=== PATIENT | male | born 1940 | race Caucasian/White ===

== ENCOUNTER 2019-04-10 05:27 | Day surgery (SDC) | payer OTHER | END 2019-04-10 10:20 | disposition home or self-care (01) | LOC: AMB-ENDOS 05:27 | DX: D12.3 Benign neoplasm of transverse colon (principal); K64.1 Second degree hemorrhoids ==

== ENCOUNTER 2019-10-16 05:21 | Day surgery (SDC) | payer OTHER | END 2019-10-16 10:25 | disposition home or self-care (01) | LOC: AMB-ENDOS 05:21 | DX: D12.3 Benign neoplasm of transverse colon (principal); K64.1 Second degree hemorrhoids ==

== ENCOUNTER 2019-10-26 15:36 | Inpatient (IN) | payer OTHER ==
[~2019-10-26] VITALS: Ht 165.1 cm; Wt 70.3 kg
[2019-12-01] MEDS ORDERED: FORTAMET1000 MG PO (10:10)
[2019-12-01] MEDS ORDERED: VERAPAM (10:11)
[2019-12-01] MEDS ORDERED: LOSARTAN-HCTZ1 EAC1 PO (10:11)
[2019-12-01] MEDS ORDERED: SYNTHROID50 MCG PO (10:12)
[2019-12-01] MEDS ORDERED: KAPVAY0.1 MG (10:12)
[2019-12-01] MEDS ORDERED: ZOCOR20 MG PO (10:12)
[2019-12-01] MEDS ORDERED: MEMANTINE HCL5 MG PO (10:13)
[2019-12-08] MEDS ORDERED: VERELAN120 MG PO (08:12)
== END 2019-12-11 16:50 | disposition home or self-care (01) | DRG 330 ==
LOC: O/R 12-08 05:40 → SURH 12-08 05:40 → SURG 12-08 09:00 → SURH 12-08 11:29 → SURG 12-08 19:00 → SURH 12-11 16:50
PROVIDERS: ADMIT Colon & Rectal Surgery
PROC: 07BC4ZX Excision of Pelvis Lymphatic, Percutaneous Endoscopic Approach, Diagnostic (ICD-10-PCS; 2019-12-08)
PROC: 0DBU4ZZ Excision of Omentum, Percutaneous Endoscopic Approach (ICD-10-PCS; 2019-12-08)
PROC: 0DTN4ZZ Resection of Sigmoid Colon, Percutaneous Endoscopic Approach (ICD-10-PCS; principal; 2019-12-08 19:00)
DX: C18.7 Malignant neoplasm of sigmoid colon (principal); K92.1 Melena; Z86.010 Personal history of colon polyps; I10 Essential (primary) hypertension; R50.82 Postprocedural fever

== ENCOUNTER 2020-06-07 14:18 | Emergency (ER) | payer OTHER ==
[~2020-06-07] VITALS: Ht 165.1 cm; Wt 70.3 kg
[~2020-06-07 14:18] MED LIST: FORTAMET1000 MG PO; KAPVAY0.1 MG; LOSARTAN-HCTZ1 EAC1 PO; MEMANTINE HCL5 MG PO; SYNTHROID50 MCG PO; VERAPAM; VERELAN120 MG PO; ZOCOR20 MG PO
[2020-06-08] MEDS ORDERED: CELEBREX100 MG PO (06:43)
== END 2020-06-08 07:11 | disposition home or self-care (01) ==
LOC: ER 14:18
DX: K65.4 Sclerosing mesenteritis (principal); R18.8 Other ascites; K59.09 Other constipation; K76.89 Other specified diseases of liver; I16.0 Hypertensive urgency; I10 Essential (primary) hypertension

== ENCOUNTER 2020-08-05 08:06 | Day surgery (SDC) | payer OTHER ==
[~2020-08-05 08:06] MED LIST changes: +CELEBREX100 MG PO
== END 2020-08-05 12:55 | disposition home or self-care (01) ==
LOC: AMB-ENDOS 08:06
PROVIDERS: ATTEND Colon & Rectal Surgery
DX: K62.89 Other specified diseases of anus and rectum (principal); K64.1 Second degree hemorrhoids; Z20.828 Contact with and (suspected) exposure to other viral communicable diseases

== ENCOUNTER 2021-09-01 06:15 | Day surgery (SDC) | payer OTHER | END 2021-09-01 09:05 | disposition home or self-care (01) | LOC: AMB-ENDOS 06:15 | PROVIDERS: ATTEND Colon & Rectal Surgery | DX: K62.89 Other specified diseases of anus and rectum (principal); K64.0 First degree hemorrhoids; Z20.822 Contact with and (suspected) exposure to COVID-19 ==